=== PATIENT | male | born 1985 | race Caucasian/White ===

== ENCOUNTER 2018-12-04 12:03 | Emergency (ER) | payer MEDICAID ==
[~2018-12-04] VITALS: Ht 152.4 cm; Wt 50.5 kg
[2018-12-04 12:07] VITALS: Ht 152.4 cm; Wt 50.5 kg
[2018-12-04 15:44] VITALS: BP 122/89
== END 2018-12-04 15:45 | disposition home or self-care (01) ==
LOC: D.ER 12:03
DX: M25.511 Pain in right shoulder (principal)

== ENCOUNTER 2019-11-20 18:08 | Inpatient (IN) | payer MEDICAID ==
[~2019-11-20] VITALS: Ht 152.4 cm; Wt 51.3 kg
[2019-11-20 18:52] LABS: MCH 39.6 pg (26.0-34.0); MCHC 34.1 g/dL (31.0-37.0); MCV 116.1 fL (80.0-100.0); RDW 19.4 % (11.5-14.5)
[2019-11-20 18:53] LABS: RBC 1.49 10x6/uL (4.20-6.10)
[2019-11-20 18:54] LABS: HEMATOCRIT 17.3 % (42.0-54.0); HEMOGLOBIN 5.9 g/dL (13.5-17.5); PLATELET COUNT 33 10x3/uL (130-400)
[2019-11-20 19:07] LABS: ANION GAP 10.5 mmol/L (8-16); CALCIUM 7.8 mg/dL (8.5-10.1); CARBON DIOXIDE 24.1 mmol/L (21.0-32.0); CREATININE - SERUM 1.4 mg/dL (0.6-1.3); POTASSIUM - SERUM 3.6 mmol/L (3.5-5.1)
[2019-11-20 19:13] LABS: ALBUMIN 3.2 g/dL (3.4-5.0); BILIRUBIN - TOTAL 1.13 mg/dL (0.2-1.3); PROTEIN - SERUM 6.4 g/dL (6.4-8.2)
[2019-11-20 19:26] LABS: BILIRUBIN NEGATIVE (NEGATIVE); KETONE NEGATIVE (NEGATIVE); NITRITE NEGATIVE (NEGATIVE); UROBILINOGEN NORMAL (NORMAL)
--- NOTE | 2019-11-20 19:26 | NUR ---
PT IN ROOM 19 - CHANGED INTO GOWN. IV STARTED. STOOL FOR OCCULT BLOOD NEGATIVE.
--- NOTE | 2019-11-20 20:06 | NUR ---
BLOOD CONSENT SIGNED.
[2019-11-20 20:11] LABS: % SATURATION 88 % (15-55); IRON 195 ug/dl (35-150); TOTAL IRON BIND CAPACITY 220 ug/dl (260-445)
[2019-11-20 20:35] LABS: UDS - AMPHET NEGATIVE QUAL (NEGATIVE); UDS - BARB NEGATIVE QUAL (NEGATIVE); UDS - BENZO NEGATIVE QUAL (NEGATIVE); UDS - COCAINE NEGATIVE QUAL (NEGATIVE); UDS - OPIATE NEGATIVE QUAL (NEGATIVE); UDS - PCP NEGATIVE QUAL (NEGATIVE); UDS - THC NEGATIVE QUAL (NEGATIVE)
[2019-11-20 20:37] LABS: ERYTHROCYTE SEDIMENTATION RATE 35 mm/hr (0-15)
[2019-11-20 20:43] LABS: EOSINOPHILS 1 % (0-7); LYMPHOCYTES 33 % (15-50); MONOCYTES 2 % (2-11); NEUTROPHILS 64 % (40-80); PLATELET ESTIMATE DECREASED
--- NOTE | 2019-11-20 20:45 | NUR ---
1'ST UNIT OF PRBC'S BEGAN.
[2019-11-20 20:49] LABS: UNSAT IRON BIND CAPACITY 25 ug/dl (150-375)
--- NOTE | 2019-11-20 22:02 | NUR ---
DR MAYS IN TO SEE PATIENT.
[2019-11-20 23:50] VITALS: BP 154/77
--- NOTE | 2019-11-20 23:50 | NUR ---
BEGAN TRANS SECOND UNIT PRBC
[2019-11-20 23:58] LABS: HEMOGLOBIN 7.3 g/dL (13.5-17.5)
[2019-11-21] VITALS (9 sets, daily range): BP systolic 139–154; BP diastolic 77–98; Ht 152.4 cm; Wt 51.3 kg
--- NOTE | 2019-11-21 02:40 | NUR ---
BEGAN TRANS THIRD UNIT PR[facility]
[2019-11-21 09:53] LABS: ALBUMIN 3.1 g/dL (3.4-5.0); ALKALINE PHOSPHATASE 121 U/L (30-120); ALT (SGPT) 23 U/L (10-68); BILIRUBIN - TOTAL 2.51 mg/dL (0.2-1.3); CALC OSMOLALITY 278 mosm/kg (275-300); CALCIUM 7.8 mg/dL (8.5-10.1); CARBON DIOXIDE 25.9 mmol/L (21.0-32.0); CHLORIDE - SERUM 107 mmol/L (98-107); CREATININE - SERUM 1.2 mg/dL (0.6-1.3); GLUCOSE 104 mg/dL (74-106); POTASSIUM - SERUM 3.4 mmol/L (3.5-5.1); PROTEIN - SERUM 6.3 g/dL (6.4-8.2); SODIUM 139 mmol/L (136-145); TROPONIN-I < 0.017 ng/mL (0.000-0.060); UREA NITROGEN 14 mg/dL (7-18); eGFR NON AFRICAN AMERICAN 74 mL/min (90-120)
[2019-11-21 09:58] LABS: BASOPHILS 0 % (0-2); EOSINOPHILS 0.6 % (0-7); IMMATURE GRANULOCYTES 0.6 % (0-5); LYMPHOCYTES 47.3 % (15-50); MCH 33.8 pg (26.0-34.0); MONOCYTES 1.8 % (2-11); NEUTROPHILS 49.7 % (40-80); RDW 22.9 % (11.5-14.5)
[2019-11-21 10:00] LABS: HEMATOCRIT 31.2 % (42.0-54.0); HEMOGLOBIN 10.6 g/dL (13.5-17.5); MCV 99.4 fL (80.0-100.0); PLATELET COUNT 53 10x3/uL (130-400); RBC 3.14 10x6/uL (4.20-6.10); WBC 1.7 10x3/uL (4.8-10.8)
--- NOTE | 2019-11-21 18:19 | NUR ---
I have reviewed this patient and I concur with the Shift Assessment completed by the Licensed Practical Nurse today this shift.
--- NOTE | 2019-11-21 19:39 | NUR ---
COLLECTED STOOL SAMPLE PER ORDERS. CLEARED TRASH, DIRTY LINENS, AND DINNER TRAY FROM PATIENT'S ROOM. PATIENT AND MOM DENIES OTHER NEEDS AT THIS TIME. BED IN LOWEST POSITION AND CALL LIGHT WITHIN REACH. ENCOURAGED PATIENT AND MOM TO CALL IF THEY HAVE NEEDS.
--- NOTE | 2019-11-21 21:32 | NUR ---
RESPONDED TO CALL LIGHT. PATIENT'S MOM AT BEDSIDE REQUESTED TYLENOL FOR PATIENT'S HEADACHE. PAGED ASSEMBLY ADJUSTER PER REQUEST.
--- NOTE | 2019-11-21 23:44 | NUR ---
PATIENT'S MOM REFUSED MIDNIGHT VITALS
[2019-11-22] VITALS (11 sets, daily range): BP systolic 118–144; BP diastolic 68–94
[2019-11-22 07:20] LABS: HEMATOCRIT 30.8 % (42.0-54.0); HEMOGLOBIN 10.6 g/dL (13.5-17.5); MCHC 34.4 g/dL (31.0-37.0); MCV 98.7 fL (80.0-100.0); RBC 3.12 10x6/uL (4.20-6.10); RDW 22.9 % (11.5-14.5)
[2019-11-22 07:26] LABS: PLATELET COUNT 46 10x3/uL (130-400)
[2019-11-22 07:32] LABS: ANION GAP 6.7 mmol/L (8-16); CALCIUM 7.9 mg/dL (8.5-10.1); CARBON DIOXIDE 27.7 mmol/L (21.0-32.0); CREATININE - SERUM 1.2 mg/dL (0.6-1.3); MAGNESIUM - SERUM 1.6 mg/dL (1.8-2.4); POTASSIUM - SERUM 3.4 mmol/L (3.5-5.1)
[2019-11-22 07:55] LABS: INR 1.37 (0.85-1.17); PROTIME 16.7 SECONDS (11.6-15.0)
[2019-11-22 07:56] LABS: APTT 39.5 SECONDS (22.8-39.4)
[2019-11-22 11:10] LABS: SPE - A/G RATIO 1.2 (0.7-1.7); SPE - ALBUMIN 3.4 g/dL (2.9-4.4); SPE - ALPHA-1 GLOBULIN 0.2 g/dL (0.0-0.4); SPE - ALPHA-2 GLOBULIN 0.4 g/dL (0.4-1.0); SPE - BETA GLOBULIN 0.8 g/dL (0.7-1.3); SPE - GAMMA GLOBULIN 1.5 g/dL (0.4-1.8); SPE - M-SPIKE Not Observed g/dL (Not Observed); SPE - TOTAL PROTEIN 6.3 g/dL (6.0-8.5)
[2019-11-22 11:31] LABS: EOSINOPHILS 2 % (0-7); LYMPHOCYTES 54 % (15-50); MONOCYTES 5 % (2-11); NEUTROPHILS 39 % (40-80)
[2019-11-22 11:32] LABS: ANISOCYTOSIS OCC; PLATELET ESTIMATE DECREASED
[2019-11-23 04:00] VITALS: BP 159/100
--- NOTE | 2019-11-23 07:00 | NUR ---
A&O RESTING IN BED WITH EYES OPEN. NO C/O PAIN. NO S/S OF ACUTE DISTRESS NOTED. ON NEUTROPENIC PRECAUTIONS. POD #1 LUMBAR PUNCTURE, DRESSING TO LOWER BACK C/D/I. MOTHER AT BEDSIDE. IV TO LEFT FOREARM, SL. SITE PATENT WITHOUT REDNESS OR SWELLING. ON TELEMETRY SR. POTASSIUM 3.4 AND MAGNESIUM 1.6 THIS AM, WILL FOLLOW ELECTROLYTE PROTOCOL. DENIES ANY NEEDS AT THIS TIME. CALL LIGHT IN REACH. WILL CONTINUE TO MONITOR.
--- NOTE | 2019-11-23 07:13 | NUR ---
I have reviewed this patient and I concur with the Shift Assessment completed by the Licensed Practical Nurse today this shift.
[2019-11-23 07:39] LABS: BASOPHILS 0 % (0-2); EOSINOPHILS 0.9 % (0-7); HEMOGLOBIN 10.5 g/dL (13.5-17.5); IMMATURE GRANULOCYTES 0.4 % (0-5); LYMPHOCYTES 53.7 % (15-50); MCH 33.8 pg (26.0-34.0); MCHC 33.9 g/dL (31.0-37.0); MCV 99.7 fL (80.0-100.0); MONOCYTES 9.1 % (2-11); NEUTROPHILS 35.9 % (40-80); RBC 3.11 10x6/uL (4.20-6.10); RDW 21.8 % (11.5-14.5); WBC 2.3 10x3/uL (4.8-10.8)
[2019-11-23 07:40] LABS: PLATELET COUNT 57 10x3/uL (130-400)
[2019-11-23 08:20] LABS: PLATELET ESTIMATE DECREASED
[2019-11-23 08:36] LABS: CALC OSMOLALITY 277 mosm/kg (275-300); CALCIUM 7.8 mg/dL (8.5-10.1); CARBON DIOXIDE 24.1 mmol/L (21.0-32.0); CHLORIDE - SERUM 107 mmol/L (98-107); CREATININE - SERUM 1.1 mg/dL (0.6-1.3); GLUCOSE 92 mg/dL (74-106); MAGNESIUM - SERUM 1.8 mg/dL (1.8-2.4); SODIUM 139 mmol/L (136-145); UREA NITROGEN 13 mg/dL (7-18); eGFR NON AFRICAN AMERICAN 82 mL/min (90-120)
[2019-11-23 09:58] VITALS: BP 141/96
[2019-11-23 13:33] VITALS: BP 142/90
[2019-11-23 18:25] VITALS: BP 147/89
[2019-11-23 20:00] VITALS: BP 146/78
[2019-11-24 04:00] VITALS: BP 143/86
[2019-11-24 05:50] LABS: ANION GAP 6.6 mmol/L (8-16); CALCIUM 7.9 mg/dL (8.5-10.1); CARBON DIOXIDE 29.6 mmol/L (21.0-32.0); CREATININE - SERUM 1.2 mg/dL (0.6-1.3); MAGNESIUM - SERUM 1.7 mg/dL (1.8-2.4); POTASSIUM - SERUM 3.2 mmol/L (3.5-5.1)
[2019-11-24 06:17] LABS: HEMATOCRIT 30.3 % (42.0-54.0); HEMOGLOBIN 10.4 g/dL (13.5-17.5); MCH 34.1 pg (26.0-34.0); MCHC 34.3 g/dL (31.0-37.0); MCV 99.3 fL (80.0-100.0); RBC 3.05 10x6/uL (4.20-6.10); RDW 21.9 % (11.5-14.5); WBC 2.6 10x3/uL (4.8-10.8)
[2019-11-24 06:19] LABS: PLATELET COUNT 38 10x3/uL (130-400)
[2019-11-24 06:44] LABS: EOSINOPHILS 1 % (0-7); LYMPHOCYTES 36 % (15-50); NEUTROPHILS 60 % (40-80); PLATELET ESTIMATE DECREASED; POIKILOCYTOSIS OCC; SCHISTOCYTES OCC
[2019-11-24 06:45] LABS: ANISOCYTOSIS OCC
--- NOTE | 2019-11-24 07:00 | NUR ---
A&O RESTING IN BED WITH EYES OPEN. MOTHER AT BEDSIDE. ON NEUTROPENIC PRECAUTIONS. POD #2 LUMBAR PUNCTURE, DRESSING TO LOWER BACK C/D/I. IV TO LEFT FOREARM, SL. SITE PATENT WITHOUT REDNESS OR SWELLING. ON TELEMETRY SR 63. DENIES ANY NEEDS AT THIS TIME. CALL LIGHT IN REACH. WILL CONTINUE TO MONITOR.
--- NOTE | 2019-11-24 07:20 | NUR ---
I have reviewed this patient and I concur with the Shift Assessment completed by the Licensed Practical Nurse today this shift.
--- NOTE | 2019-11-24 08:13 | NUR ---
PATIENT IS WITHOUT DISTRESS.MOM IN ROOM. NEUTROPENIC ISOLATION MAINTAINED.
[2019-11-24 08:40] VITALS: BP 131/73
[2019-11-24 12:25] VITALS: BP 129/84
[2019-11-24 16:38] VITALS: BP 142/86
--- NOTE | 2019-11-24 18:48 | NUR ---
RESTING IN BED WITH EYES OPEN. NO C/O PAIN. NO S/S OF ACUTE DISTRESS NOTED. DENIES ANY NEEDS AT THIS TIME. MOTHER AT BEDSIDE. CALL LIGHT IN REACH. WILL CONTINUE TO MONITOR.
--- NOTE | 2019-11-24 19:00 | NUR ---
ASSUMED CARE OF PATIENT, PATIENT RESTING QUIETLY WITH EYES CLOSED, AWAKENS TO VERBAL STIMULI, NO DISTRESS NOTED, DENIES NEEDS AT THIS TIME, WILL CONTINUE TO MONITOR PATIENT, FAMILY X1 AT BS, CALL LIGHT WITHIN REACH
[2019-11-24 20:00] VITALS: BP 149/75
[2019-11-25] VITALS: BP 142/97
[2019-11-25 04:00] VITALS: BP 142/87
--- NOTE | 2019-11-25 06:55 | NUR ---
A&O SITTING UP IN BED. MOTHER AT BEDSIDE. NO C/O PAIN. NO S/S OF ACUTE DISTRESS NOTED. POD #3 LUMBAR PUNCTURE, DRESSING C/D/I. ON NEUTROPENIC PRECAUTIONS. IV TO LEFT FOREARM, SL. SITE PATENT WITHOUT REDNESS OR SWELLING. ON TELEMETRY SR 73. DENIES ANY NEEDS AT THIS TIME. CALL LIGHT IN REACH. WILL CONTINUE TO MONITOR.
[2019-11-25 07:09] LABS: ANION GAP 9.4 mmol/L (8-16); CALCIUM 7.9 mg/dL (8.5-10.1); CARBON DIOXIDE 29.2 mmol/L (21.0-32.0); CREATININE - SERUM 1.4 mg/dL (0.6-1.3); MAGNESIUM - SERUM 1.8 mg/dL (1.8-2.4); POTASSIUM - SERUM 3.6 mmol/L (3.5-5.1)
[2019-11-25 07:48] LABS: BASOPHILS 0.4 % (0-2); EOSINOPHILS 1.3 % (0-7); HEMATOCRIT 30.2 % (42.0-54.0); HEMOGLOBIN 10.2 g/dL (13.5-17.5); IMMATURE GRANULOCYTES 0.9 % (0-5); LYMPHOCYTES 45.9 % (15-50); MCH 34.1 pg (26.0-34.0); MCHC 33.8 g/dL (31.0-37.0); NEUTROPHILS 37.5 % (40-80); RBC 2.99 10x6/uL (4.20-6.10); RDW 22.3 % (11.5-14.5); WBC 2.3 10x3/uL (4.8-10.8)
[2019-11-25 07:50] LABS: PLATELET COUNT 40 10x3/uL (130-400)
[2019-11-25 09:16] VITALS: BP 175/97
--- NOTE | 2019-11-25 11:56 | MORECARE ---
CASE MANAGEMENT DISCHARGE SUMMARY PATIENT: BENNETT GUTHRIE UNIT: [id number] ADM DATE: 11/20/19 AGE: 34 : 87 SEX: M ROOM/BED: D.2231 AUTHOR: MICH MORENO PHYSICIAN: REFERRING PHYSICIAN: SERAFIN OCASIO MD DATE OF SERVICE: 11/25/19 Discharge Plan Patient Name: BENNETT GUTHRIE Facility: [facility]:[place] : 1985 Planned Disposition: Anticipated Discharge Date: Discharge Date: Expected LOS: Initial Reviewer: [email or web address] Initial Review Date: 11/20/2019 Generated: 11/25/19 12:55 pm Comments DCP- Discharge Planning Updated by [email or web address]: Kyung Pena on 11/25/19 10:[address] Patient Name: BENNETT GUTHRIE Admission Status: ER Accout number: [id number] Admission Date: 11-20-2019 : 1985 Admission Diagnosis:ANEMIA, UNSPECIFIED Attending: SERAFIN MAYS Current LOS: 5 Anticipated DC Date: Planned Disposition: Primary Insurance: MEDICAID [place] Discharge Planning Comments: CM met with patient AND HIS MOTHER at bedside after explaining CM role and obtaining verbal consent. CM discussed availability / needs of home health, REHAB and medical equipment. PATIENT AND MOTHER DENIES ANY DISCHARGE NEEDS. THEY WOULD LIKE FOR THE DOCTOR TO TELL THEM ABOUT THE BIOPSY RESULTS HE HAD DONE. SARA SCHULTE WAS NOTIFIED AND THEY WILL TALK WITH THE PATIENT AND FAMILY. CM TO FOLLOW AND ASSIST NEEDED. [employer] Machine Helper: Kyung Pena Patient Name: BENNETT GUTHIRE Page [id number] at 1156 All edits/amendments must be made on the electronic document DICTATION DATE: 11/25/19 1155 SHEEP STICKER: GINGER 11/25/19 1155 RPT#: [id number] DC DATE: STATUS: ADM IN [facility] [address] [place] [address] END OF REPORT
--- NOTE | 2019-11-25 12:04 | NUR ---
DISCHARGED PATIENT HOME WITH MOTHER. DISCONTINUED IV, CATHETER TIP INTACT. WENT OVER DISCHARGE INSTRUCTIONS WITH MOTHER, VERBALIZED UNDERSTANDING. DENIES ANYTHING FURTHER.
--- NOTE | 2019-11-25 15:26 | MORECARE ---
CASE MANAGEMENT DISCHARGE SUMMARY PATIENT: BENNETT GUTHRIE UNIT: [id number] ADM DATE: 11/20/19 AGE: 34 : 87 SEX: M ROOM/BED: D.2231 AUTHOR: MICH MORENO PHYSICIAN: REFERRING PHYSICIAN: SERAFNI OCASIO MD DATE OF SERVICE: 11/25/19 Discharge Plan Patient Name: BENNETT GUTHRIE Facility: [facility]:[place] : 1985 Planned Disposition: Anticipated Discharge Date: Discharge Date: 11/25/2019 Expected LOS: Initial Reviewer: [email or web address] Initial Review Date: 11/20/2019 Generated: 11/25/19 4:26 pm Comments DCP- Discharge Planning Updated by [email or web address]: Kyung Pena on 11/25/19 10:[address] Patient Name: BENNETT GUTHRIE Admission Status: ER Accout number: [id number] Admission Date: 11-20-2019 : 1985 Admission Diagnosis:ANEMIA, UNSPECIFIED Attending: SERAFIN MAYS Current LOS: 5 Anticipated DC Date: Planned Disposition: Primary Insurance: MEDICAID [place] Discharge Planning Comments: CM met with patient AND HIS MOTHER at bedside after explaining CM role and obtaining verbal consent. CM discussed availability / needs of home health, REHAB and medical equipment. PATIENT AND MOTHER DENIES ANY DISCHARGE NEEDS. THEY WOULD LIKE FOR THE DOCTOR TO TELL THEM ABOUT THE BIOPSY RESULTS HE HAD DONE. SARA SCHULTE WAS NOTIFIED AND THEY WILL TALK WITH THE PATIENT AND FAMILY. CM TO FOLLOW AND ASSIST NEEDED. Fax Machine Repairer: Kyung Block DP export: 11/25/19 10:56 a Patient Name: BENNETT GUTHRIE Page [id number] at 1526 All edits/amendments must be made on the electronic document DICTATION DATE: 11/25/19 1526 CNC LATHE MACHINE OPERATOR: GINGER 11/25/19 1526 RPT#: [id number] DC DATE:11/25/19 STATUS: DIS IN [facility] [id number] [place] [address] END OF REPORT
== END 2019-11-25 12:05 | disposition home or self-care (01) | DRG 804 ==
LOC: D.ER 18:08 → D.MS 21:24
PROVIDERS: Family Medicine; Specialist; ADMIT Family Medicine Adult Medicine; ATTEND Family Medicine Adult Medicine
PROC: 0QB23ZX Excision of Right Pelvic Bone, Percutaneous Approach, Diagnostic (ICD-10-PCS; 2019-11-22)
PROC: 07DR3ZX Extraction of Iliac Bone Marrow, Percutaneous Approach, Diagnostic (ICD-10-PCS; principal; 2019-11-22 11:30)
DX: D61.818 Other pancytopenia (principal); Q90.9 Down syndrome, unspecified; E53.8 Deficiency of other specified B group vitamins